=== PATIENT | male | born 1960 | race Caucasian/White ===

== ENCOUNTER 2017-11-23 08:50 | Day surgery (SDC) | payer BC, OTHER ==
[~2017-11-23 08:50] MED LIST: Lactated Ringers 1,000 ML IV SCH; Midazolam 1 MG/ML 2 ML SDV ONE; Propofol 200 MG/20 ML SDV ONE; fentaNYL 100 MCG/2 ML SDV ONE
--- NOTE | 2017-11-23 09:43 | PCM.PREANE ---
Preanesthetic Assessment - Anesthesia/Transfusion/Family Hx Anesthesia History: Prior Anesthesia Without Reaction Family History of Anesthesia Reaction: No Transfusion History: No Prior Transfusion(s) - Review of Systems General: No Symptoms Pulmonary: No Symptoms Cardiovascular: No Symptoms Gastrointestinal: No Symptoms Neurological: No Symptoms Other: Reports: None - Physical Assessment NPO Status Date: 11/22/17 O2 Sat by Pulse Oximetry: 95 Respiratory Rate: 16 Vital Signs: Last Vital Signs Temp 36.1 C 11/23/17 09:12 Pulse 70 11/23/17 09:12 Resp 16 11/23/17 09:12 BP 140/89 11/23/17 09:12 Pulse Ox 95 11/23/17 09:12 Height: 1.85 m Weight: 112.037 kg ASA Class: 2 Mental Status: Alert & Oriented x3 Airway Class: Mallampati = 2 Dentition: Reports: Normal Dentition ROM/Head Extension: Full Lungs: Clear to Auscultation, Normal Respiratory Effort Cardiovascular: Regular Rate, Regular Rhythm - Allergies Allergies/Adverse Reactions: Allergies Allergy/AdvReac Type Severity Reaction Status Date / Time Penicillins Allergy Unknown Cannot Verified 11/18/17 10:37 Remember - Anesthesia Plan Pre-Op Medication Ordered: None - Acknowledgements Anesthesia Type Planned: MAC Pt an Appropriate Candidate for the Planned Anesthesia: Yes Alternatives and Risks of Anesthesia Discussed w Pt/Guardian: Yes Pt/Guardian Understands and Agrees with Anesthesia Plan: Yes Additional Comments: [facility]: asthma, inactive, s/p MARCELLO 3 yr ago PreAnesthesia Questionnaire Respiratory History: Reports: Asthma Gastrointestinal History: Reports: Other (See Below) Other Gastrointestinal History: occasional heartburn Musculoskeletal History: Reports: Fracture Other Musculoskeletal History: hx fx arm Endocrine/Metabolic History: Reports: Obesity/BMI 30+ - Past Surgical History Head Surgeries/Procedures: Reports: None GI Surgical History: Reports: Other (See Below) Other GI Surgeries/Procedures: surgery as an for reflux Musculoskeletal Surgical History: Reports: Hip Replacement Other Musculoskeletal Surgeries/Procedures:: rt hip replacement - SUBSTANCE USE Smoking Status *Q: Never Smoker Recreational Drug Use History: No - HOME MEDS Home Medications: Home Meds Albuterol [Proair HFA] 1 - 2 puff INH ASDIRECTED PRN 11/18/17 [History] Ascorbic Acid [Vitamin C] 1 tab PO DAILY 11/18/17 [History] Aspirin [[place] Aspirin] 81 mg PO DAILY 11/18/17 [History] Krill/[place] Lane-3/Dha/Epa/Lipids [Krill Oil 300 mg Softgel] 1 tab PO DAILY 11/18/17 [History] - CURRENT (IN HOUSE) MEDS Current Meds: Current Medications Lactated Ringer's (Ringers, Lactated) 1,000 mls @ 125 mls/hr IV ASDIRECTED JANEY Last Admin: 11/23/17 09:13 Dose: 125 mls/hr Discontinued Medications Fentanyl (Sublimaze) Confirm Administered Dose 100 mcg .ROUTE .STK-MED ONE Stop: 11/23/17 07:19 Lidocaine HCl (Xylocaine-Mpf 1%) Confirm Administered Dose 5 ml .ROUTE .STK-MED ONE Stop: 11/23/17 07:20 Midazolam HCl (Versed 1 Mg/Ml) Confirm Administered Dose 2 mg .ROUTE .STK-MED ONE Stop: 11/23/17 07:19 Propofol (Diprivan 20 Ml) Confirm Administered Dose 200 mg .ROUTE .STK-MED ONE Stop: 11/23/17 07:19
--- NOTE | 2017-11-23 10:30 | PCM.OPNOTE ---
- General Post-Op/Procedure Note Date of Surgery/Procedure: 11/23/17 Operative Procedure(s): colonoscopy Findings: see dict [id number] Pre Op Diagnosis: scrn colonoscopy Post-Op Diagnosis: hemorrhoid Anesthesia Technique: Moderate Sedation Primary Surgeon: Reji Saeed Complications: None Condition: Good
--- NOTE | 2017-11-23 10:41 | PCM.POSTAN ---
POST ANESTHESIA ASSESSMENT - MENTAL STATUS Mental Status: Alert, Oriented - RESPIRATORY Respiratory Status: Respiratory Rate WNL, Airway Patent, O2 Saturation Stable - CARDIOVASCULAR CV Status: Pulse Rate WNL, Blood Pressure Stable - GASTROINTESTINAL GI Status: No Symptoms - POST OP HYDRATION Hydration Status: Adequate & Stable
--- NOTE | 2017-11-23 10:42 | PCM48HPAN ---
Post Anesthesia Note - EVALUATION WITHIN 48HRS OF ANESTHETIC Vital Signs in Normal Range: Yes Patient Participated in Evaluation: Yes Respiratory Function Stable: Yes Airway Patent: Yes Cardiovascular Function Stable: Yes Hydration Status Stable: Yes Pain Control Satisfactory: Yes Nausea and Vomiting Control Satisfactory: Yes Mental Status Recovered: Yes
--- NOTE | 2017-11-23 11:04 | OR ---
SURGEON: Reji Saeed MD DATE OF PROCEDURE: 11/23/2017 PREOPERATIVE DIAGNOSIS: Screening colonoscopy. POSTOPERATIVE DIAGNOSIS: Screening colonoscopy. PROCEDURE PERFORMED: Colonoscopy. FINDINGS: 1. The patient is easily sedated with US[employer] SAL[employer] REPRESENTATIVE and Diprivan. The patient is soundly snoring. 2. Bowel prep is average to good with very little liquid stool, no semi-formed stool. The patient's colon is rather straight forward. Cecum indicated by ileocecal fold, one-to-one indentation, and light emittance and appendiceal orifice all observed. Mucosa examined upon scope pulling out. The patient does not have diverticulosis, polyp, mass, growth, inflammation, stricture, AV malformation, inflammation, or blood or ulcer, none of those. The patient has moderate external hemorrhoids and no internal hemorrhoids. The patient would benefit from a repeat colonoscopy 10 years from today or if clinically indicated otherwise. PROCEDURE IN DETAIL: The patient was taken to the endoscopy room. A time out was called, patient identified, and procedure identified. Diprivan was then administrated. Patient went from awake to sleep, hearing doctor talking or door closing is normal. Perineum inspection and digital examination were then performed. A well- lubricated colonoscope was gently inserted through the rectum, advanced past the rectosigmoid junction, the descending colon, splenic flexure, transverse colon, hepatic flexure, ascending colon, arrived to the cecum. Cecum was identified as dictated in the finding. Then the scope was carefully withdrawn while attention was paid to the mucosal surface for any abnormality. Air will be sucked out during the scope withdrawal. At the rectum, retroflexed to examine any rectal diseases, fistula or hemorrhoids. Patient tolerated procedure well. There were no intraoperative complications, and Dr. Saeed was present throughout the whole procedure. MORGAN / HOMERO /[id number]
== END 2017-11-23 10:55 | disposition home or self-care (01) ==
LOC: MW.SDS 08:50
PROVIDERS: ATTEND Surgery
DX: Z12.11 Encounter for screening for malignant neoplasm of colon (principal); K64.4 Residual hemorrhoidal skin tags; J45.909 Unspecified asthma, uncomplicated; Z88.0 Allergy status to penicillin; E66.9 Obesity, unspecified; Z79.82 Long term (current) use of aspirin; Z68.32 Body mass index [BMI] 32.0-32.9, adult; Z96.641 Presence of right artificial hip joint; Z79.899 Other long term (current) drug therapy
CPT/HCPCS: 45378; J2250; J3010; J7120; 00812; J2704

== ENCOUNTER 2020-01-20 16:52 | Emergency (ER) | payer BC ==
[2020-01-20] MEDS ORDERED: Ketorolac 60 MG/2 ML SDV IM ONE (17:31)
--- NOTE | 2020-01-20 18:00 | EDM.PDOC ---
ED HPI GENERAL MEDICAL PROBLEM - General Chief Complaint: Lower Extremity Injury/Pain Stated Complaint: INJURED HIP Time Seen by Provider: 01/20/20 16:55 Source of Information: Reports: Patient History Limitations: Reports: No Limitations - History of Present Illness INITIAL COMMENTS - FREE TEXT/NARRATIVE: HISTORY AND PHYSICAL: History of present illness: Patient is a 59-year-old male who presents to the ED today for concern of right hip pain that started a few days ago. Patient states he first noticed the hip pain when he was shoveling the snow and felt a pull of his right hip. Patient states since then the hip pain is worsened. Patient states he does have a history of hip replacement on this hip. Patient denies any falls or direct injury to the hip. Patient states it feels as if the nerve is pinched and causing most of the pain. Patient denies any other symptoms or concerns. Patient denies fever, chills, chest pain, shortness of breath, or cough. Denies headache, neck stiff ness, change in vision, syncope, or near syncope. Denies nausea, vomiting, abdominal pain, diarrhea, constipation, or dysuria. Has not noted any blood in urine or stool. Patient has been eating and drinking appropriately. Review of systems: As per history of present illness and below otherwise all systems reviewed and negative. Past medical history: As per history of present illness and as reviewed below otherwise noncontributory. Surgical history: As per history of present illness and as reviewed below otherwise noncontributory. Social history: See social history for further information Family history: As per history of present illness and as reviewed below otherwise noncontributory. Physical exam: General: Patient is alert, oriented, and in no acute distress. Patient sitting comfortably on exam table. HEENT: Atraumatic, normocephalic, pupils equal and reactive bilaterally, negative for conjunctival pallor or scleral icterus, mucous membranes moist, TMs normal bilaterally, throat clear, neck supple, nontender, trachea midline. No drooling or trismus noted. No meningeal signs. No hot potato voice noted. Lungs: Clear to auscultation, breath sounds equal bilaterally, chest nontender. Heart: S1S2, regular rate and rhythm without overt murmur Abdomen: Soft, nondistended, nontender. Negative for masses or hepatosplenomegaly. Negative for costovertebral tenderness. Pelvis: Stable nontender. Genitourinary: Deferred. Rectal: Deferred. Skin: Intact, warm, dry. No lesions or rashes noted. Extremities: No obvious deformity of the complete spine. No step-offs, crepitus , or point tenderness to palpation of the complete spine. Patient does have moderate pain with palpation of the right sided SI joint with recreation of pain. Patient does have limited range of motion of the right hip due to pain. Patient is hesitant to put weight on the right lower extremity due to pain but is able to do so. SLR intact bilaterally. Patellar reflex intact bilaterally. Heel/toe gait intact. Otherwise, atraumatic, negative for cords or calf pain. Neurovascular unremarkable. Neuro: Awake, alert, oriented. Cranial nerves II through XII unremarkable. Cerebellum unremarkable. Motor and sensory unremarkable throughout. Exam nonfocal. Notes: Discussed importance for follow-up with a primary care provider or orthopedic provider. Voices understanding and is agreeable to plan of care. Denies any further questions or concerns at this time. Diagnostics: Pelvis/lumbar CT Therapeutics: Toradol, Norflex Prescription: Diclofenac, Flexeril, Tramadol # Impression: Right hip pain Plan: 1. Rest, ice, elevate the affected area. You can apply ice 15 minutes on, 15 minutes off. 2. Tylenol as directed for pain management or discomfort. Take medication as prescribed. 3. Follow up with the Orthopedic provider and primary care provider as discussed. Return to the ED as needed and as discussed. Definitive disposition and diagnosis as appropriate pending reevaluation and review of above. right hip Pain Score (Numeric/FACES): 10 - Related Data Allergies Allergy/AdvReac Type Severity Reaction Status Date / Time Penicillins Allergy Unknown Anaphylactic Verified 01/20/20 17:11 Shock Home Meds: Home Meds Albuterol [Proair HFA] 1 - 2 puff INH ASDIRECTED PRN 11/18/17 [History] Aspirin [[place] Aspirin EC] 81 mg PO DAILY 11/18/17 [History] Krill/[place]-3/Dha/Epa/Lipids [Krill Oil 300 mg Softgel] 1 tab PO DAILY 11/18/17 [History] Multivitamin [Multivitamins] 1 each PO DAILY 01/20/20 [History] Past Medical History Respiratory History: Reports: Asthma Gastrointestinal History: Reports: Other (See Below) Other Gastrointestinal History: occasional heartburn Musculoskeletal History: Reports: Fracture Other Musculoskeletal History: hx fx arm Endocrine/Metabolic History: Reports: Obesity/BMI 30+ - Infectious Disease History Infectious Disease History: Reports: Chicken Pox - Past Surgical History Head Surgeries/Procedures: Reports: None GI Surgical History: Reports: Other (See Below) Other GI Surgeries/Procedures: surgery as an infant for reflux Musculoskeletal Surgical History: Reports: Hip Replacement Other Musculoskeletal Surgeries/Procedures:: rt hip replacement Social & Family History - Family History Family Medical History: Noncontributory - Tobacco Use Smoking Status *Q: Never Smoker - Caffeine Use Caffeine Use: Reports: None - Recreational Drug Use Recreational Drug Use: No Review of Systems - Review of Systems Review Of Systems: Comprehensive ROS is negative, except as noted in HPI. ED EXAM, GENERAL - Physical Exam Exam: See Below (see dictation) Course - Vital Signs Last Recorded V/S: Last Vital Signs Temp 96.0 F L 01/20/20 17:12 Pulse 65 01/20/20 17:12 Resp 20 01/20/20 17:12 BP 178/73 H 01/20/20 17:12 Pulse Ox 96 01/20/20 17:12 - Orders/Labs/Meds Meds: Medications Discontinued Medications Generic Name Dose Route Start Last Admin Trade Name Alonsoq PRN Reason Stop Dose Admin Ketorolac Tromethamine 60 mg 01/20/20 17:31 01/20/20 18:22 Toradol IM 01/20/20 17:32 60 mg ONETIME ONE Administration Orphenadrine Citrate 60 mg 01/20/20 17:31 01/20/20 18:22 Norflex IM 01/20/20 17:32 60 mg ONETIME ONE Administration Departure - Departure Time of Disposition: 18:39 Disposition: Home, Self-Care 01 Clinical Impression: Right hip pain - Discharge Information Referrals: Chato Luque MD [Primary Care Provider] - Forms: ED Department Discharge Additional Instructions: The following information is given to patients seen in the emergency department who are being discharged to home. This information is to outline your options for follow-up care. We provide all patients seen in our emergency department with a follow-up referral. The need for follow-up, as well as the timing and circumstances, are variable depending upon the specifics of your emergency department visit. If you don't have a primary care physician on staff, we will provide you with a referral. We always advise you to contact your personal physician following an emergency department visit to inform them of the circumstance of the visit and for follow-up with them and/or the need for any referrals to a consulting specialist. The emergency department will also refer you to a specialist when appropriate. This referral assures that you have the opportunity for follow-up care with a specialist. All of these measure are taken in an effort to provide you with optimal care, which includes your follow-up. Under all circumstances we always encourage you to contact your private physician who remains a resource for coordinating your care. When calling for follow-up care, please make the office aware that this follow-up is from your recent emergency room visit. If for any reason you are refused follow-up, please contact the [facility] at and asked to speak to the emergency department charge nurse. [facility] [address] [place] [address] [address] [facility] [address] [place] [address], [address] [place] [address] 1. Rest, ice, elevate the affected area. You can apply ice 15 minutes on, 15 minutes off. 2. Tylenol as directed for pain management or discomfort. Take medication as prescribed. 3. Follow up with the Orthopedic provider and primary care provider as discussed. Return to the ED as needed and as discussed. Sepsis Event Note - Evaluation Sepsis Screening Result: No Definite Risk - Focused Exam Vital Signs: Vital Signs Temp Pulse Resp BP Pulse Ox 01/20/20 17:12 96.0 F L 65 20 178/73 H 96 Date Exam was Performed: 01/20/20 Time Exam was Performed: 18:38
--- NOTE | 2020-01-20 18:32 | CT ---
INDICATION: Back pain after shoveling snow today. COMPARISON: None available TECHNIQUE: CT examination of the lumbar spine is performed with spiral technique without contrast. Two mm thick axial, sagittal and coronal reconstructions were made. Please note that all CT scans at this facility use dose modulation, iterative reconstruction, and/or weight-based dosing when appropriate to reduce radiation dose to as low as reasonably achievable. FINDINGS: : The vertebral bodies are normal in height and they are in anatomic alignment. There is no sign of fracture or subluxation. 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 T12-L1: Normal. L1-2: Normal disc centrally. There is mild bilateral lateral disc bulging into the neural foramina without contact with the exiting nerve roots. L2-3: Mild spinal stenosis from congenital narrowing and minimal diffuse disc bulging. There is mild bilateral lateral disc bulging into the neural foramina without contact with the exiting nerve roots. L3-4: Mild spinal stenosis from congenital narrowing and minimal diffuse disc bulging. There is mild bilateral lateral disc bulging into the neural foramina without contact with the exiting nerve roots. L4-5: Mild broad central and left lateral disc bulge which displaces the left L5 nerve root posteriorly in the lateral recess, without compressing the nerve root. Mild spinal stenosis from the disc bulge plus congenital narrowing. There is mild bilateral lateral disc bulging into the neural foramina without contact with the exiting nerve roots. Mild loss of disc height from disc degenerative disease. Moderate right and mild left facet arthropathy. Arthropathy. L5-S1: Normal. Aside from L4-5, the intervertebral discs are normal in height. The visualized abdominal viscera is normal in appearance. There is mild bilateral sacroiliac joint primary osteoarthritis. IMPRESSION: Mild central and left lateral L4-5 disc bulge displaces the left L4 nerve root posteriorly in the lateral recess, without compressing the nerve root. Mild spinal stenosis at L4-5 as well. Mild spinal stenosis at L2-3 and L3-4. Please note that all CT scans at this facility use dose modulation, iterative reconstruction, and/or weight-based dosing when appropriate to reduce radiation dose to as low as reasonably achievable. Dictated by Leonardo Estrella MD @ Jan 20 2020 6:21PM Signed by Dr. Leonardo Estrella @ Jan 20 2020 6:29PM
--- NOTE | 2020-01-20 18:34 | CT ---
INDICATION: Low back and right hip pain after shoveling snow today. History of right hip replacement. COMPARISON: None available TECHNIQUE: CT examination of the pelvis was performed without contrast enhancement using 2 and 3 mm thick axial sections from the superior iliac crest through the pubic symphysis. Oral contrast was not administered. Please note that all CT scans at this facility use dose modulation, iterative reconstruction, and/or weight-based dosing when appropriate to reduce radiation dose to as low as reasonably achievable. FINDINGS: : The components of a right total hip prosthesis are in anatomic alignment with no sign of fracture, loosening, or dislocation. There is no sign of fracture of the [place] osseous structures. There is mild primary osteoarthritis of the sacroiliac joints bilaterally. In the pelvis, the appendix is normal in appearance with no sign of inflammatory process. The loops of small bowel and colon in the pelvis are normal in appearance. The prostate is normal in appearance. The urinary bladder is normal in appearance. There is no sign of pelvic or inguinal mass or adenopathy. There is a moderate-sized fat containing left indirect inguinal hernia. There is mild L4-5 disc degenerative disease as described on the accompanying CT of the lumbar spine. IMPRESSION: Nothing seen to explain the patient`s right hip pain. Satisfactory appearance of the components of a right total hip prosthesis. 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 Moderate-sized fat containing left indirect inguinal hernia. Please note that all CT scans at this facility use dose modulation, iterative reconstruction, and/or weight-based dosing when appropriate to reduce radiation dose to as low as reasonably achievable. Dictated by Leonardo Estrella MD @ Jan 20 2020 6:21PM Signed by Dr. Leonardo Estrella @ Jan 20 2020 6:33PM
== END 2020-01-20 19:05 | disposition home or self-care (01) ==
LOC: MW.ED 16:52
DX: M25.551 Pain in right hip (principal); J45.909 Unspecified asthma, uncomplicated; E66.9 Obesity, unspecified; Z68.33 Body mass index [BMI] 33.0-33.9, adult; Z96.641 Presence of right artificial hip joint; Z88.0 Allergy status to penicillin; Z79.899 Other long term (current) drug therapy; Z79.82 Long term (current) use of aspirin
CPT/HCPCS: 72131; 72192; 96372; 99284; J1885; J2360; 99283